=== PATIENT | female | born 1995 | race Caucasian/White ===

== ENCOUNTER 2017-01-12 04:25 | Emergency (ER) | payer OTHER ==
[~2017-01-12] VITALS: Ht 154.9 cm; Wt 79.6 kg
[2017-01-12 04:29] VITALS: Ht 154.9 cm; Wt 79.6 kg
[2017-01-12] MEDS ORDERED: ACETAMINOPHEN 325 MG TAB PO STA (05:12)
[2017-01-12] MEDS ORDERED: SODIUM CHLORIDE 0.9% 1L BAG IV* STA (05:12)
[2017-01-12 05:54] LABS: BASOPHILS % 0.1 % (0.0-2.0); EOSINOPHILS % 0.1 % (0.0-7.0); HEMOGLOBIN 13.5 g/dl (12.0-16.0); LYMPHOCYTES # 0.9 10^3/ul (0.8-2.9); LYMPHOCYTES % 8.6 % (15.0-51.0); MEAN CORPUSCULAR HEMOGLOBIN 27.6 pg (29.0-33.0); MEAN CORPUSCULAR HGB CONC 33.7 g/dl (32.0-37.0); MEAN CORPUSCULAR VOLUME 82.1 fl (82.0-101.0); MEAN PLATELET VOLUME 8.3 fl (7.4-10.4); MONOCYTES % 9.6 % (0.0-11.0); NEUTROPHIL # 8.8 10^3/ul (1.6-7.5); NEUTROPHILS % 81.6 % (39.0-77.0); PLATELET COUNT 308 10^3/UL (140-440); RED BLOOD COUNT 4.88 10^6/ul (4.20-5.40); UNCORRECTED WBC 10.7 10^3/ul (4.8-10.8); WHITE BLOOD COUNT 10.7 10^3/ul (4.8-10.8)
--- NOTE | 2017-01-12 05:54 | RADRPT ---
PROCEDURE: XR Chest. CLINICAL INDICATION: Possible sepsis TECHNIQUE: A single AP view of the chest was obtained. COMPARISON: None. FINDINGS: Lung volumes are low. No focal airspace opacification, pleural effusion or pneumothorax is seen. T he cardiomediastinal silhouette is within normal limits for size. The osseous structures are unrema rkable. IMPRESSION: Low lung volumes. No radiographic evidence of acute cardiopulmonary disease. RPTAT: HH .Tami Toney MD, MD Date Time Electronically viewed and signed by .Tami Toney MD, MD on 01/12/2017 05:53 .G/
[2017-01-12 06:01] LABS: INR 1.05; PARTIAL THROMBOPLASTIN TIME 23.9 Sec (25.0-35.0); PROTIME 13.7 Sec (12.2-14.2); PT RATIO 1.1
[2017-01-12 06:05] LABS: CONDITION 1
[2017-01-12 06:10] LABS: ALBUMIN 4.2 g/dl (3.3-4.9); CHLORIDE 105 mmol/L (97-110)
[2017-01-12 06:11] LABS: POTASSIUM 4.2 mmol/L (3.5-5.1); SODIUM 147 mmol/L (135-144)
[2017-01-12 06:13] LABS: ALBUMIN/GLOBULIN RATIO 1.44; ALKALINE PHOSPHATASE 93 IU/L (42-121); ANION GAP 20 (8-16); ASPARTATE AMINO TRANSFERASE 24 IU/L (15-46); BILIRUBIN,INDIRECT 0.1 mg/dl (0-1.1); BILIRUBIN,TOTAL 0.1 mg/dl (0.2-1.3); BLOOD UREA NITROGEN 15 mg/dl (7-20); CARBON DIOXIDE 26 mmol/L (21-31); CREATININE 0.81 mg/dl (0.44-1.00); TOTAL PROTEIN 7.1 g/dl (6.1-8.1)
[2017-01-12 06:14] LABS: ALANINE AMINOTRANSFERASE 44 IU/L (13-69); CALCIUM 9.6 mg/dl (8.4-10.2); GLUCOSE 112 mg/dl (70-220)
[2017-01-12] MEDS ORDERED: KETOROLAC 15 MG INJ IV STA (06:19)
[2017-01-12 06:25] LABS: TROPONIN-I < 0.012 ng/ml (0.00-0.12)
[2017-01-12] MEDS ORDERED: DEXAMETHASONE 10 MG/ML 1 ML INJ IV ONE (06:30)
[2017-01-12] MEDS ORDERED: AMPICILLIN/SULB 3 GM/NS (PMX) 100 ML IVPB ONE (06:30)
[2017-01-12] MEDS ORDERED: IBUP800T25 PO (06:33)
[2017-01-12] MEDS ORDERED: AMOX1TAB10 PO (06:33)
[2017-01-12] MEDS ORDERED: ONDA4TAB14 PO (06:33)
[2017-01-12 06:34] LABS: ADD UMIC YES; URINE BILIRUBIN (Dip) NEGATIVE (NEGATIVE); URINE BLOOD (Dip) 3+ (NEGATIVE); URINE COLOR LT. YELLOW (YELLOW); URINE GLUCOSE (Dip) NEGATIVE (NEGATIVE); URINE KETONES (Dip) TRACE (NEGATIVE); URINE LEUKOCYTE ESTERASE (Dip) NEGATIVE (NEGATIVE); URINE NITRITE (Dip) NEGATIVE (NEGATIVE); URINE TOTAL PROTEIN (Dip) NEGATIVE (NEGATIVE); URINE UROBILINOGEN (Dip) 0.2 E.U./dL (0.1-1.0)
[2017-01-12 06:47] LABS: BACTERIA,URINE MODERATE
--- NOTE | 2017-01-12 07:32 | ERD ---
ER Documentation Chief Complaint Date/Time DATE: 01/12/17 TIME: 07:29 Chief Complaint states atb for sore throat not working, still c/o sore throatvomiting/fever HPI Very pleasant 21-year-old female presents with sore throat and nausea and vomiting. She describes several days of symptoms that include moderate sore throat with associated nonbloody nonbilious emesis. She also has a fever. She denies any significant muffled voice, no difficulty swallowing. She went to [facility] approximately 1-1/2 days ago and received penicillin. She describes persistent symptoms despite this treatment. ROS All systems reviewed and are negative except as per history of present illness. Medications Home Meds Active Scripts Ondansetron (Ondansetron Odt) 4 Mg Tab.rapdis, 4 MG PO Q6H Y for NAUSEA AND/OR VOMITING, #30 TAB Prov:RUSLAN OLIVARES MD 01/12/17 Amoxicillin/Potassium Clav (Amox-Clav 875-125 mg Tablet) 875-125 mg Tab, 1 TAB PO BID for 7 Days, #14 TAB Prov:RUSLAN OLIVARES MD 01/12/17 Ibuprofen* (Motrin*) 800 Mg Tab, 800 MG PO Q6H Y for PAIN AND OR ELEVATED TEMP, #30 TAB Prov:RUSLAN OLIVARES MD 01/12/17 Allergies Allergies: Coded Allergies: No Known Drug Allergies (Verified Allergy, Unknown, 01/12/17) PMhx/Soc Medical and Surgical Hx: pt denies Medical Hx History of Surgery: Yes ("appendectomy at age 7") Anesthesia Reaction: No Hx Neurological Disorder: No Hx Respiratory Disorders: No Hx Cardiac Disorders: No Hx Psychiatric Problems: No Hx Miscellaneous Medical Probl: Yes ("swollen lymph node" 01/10/17) Hx Alcohol Use: No Hx Substance Use: No Hx Tobacco Use: No Smoking Status: Never smoker FmHx Family History: No diabetes Physical Exam Vitals Vital Signs Date Time Temp Pulse Resp B/P Pulse Ox O2 Delivery O2 Flow Rate FiO2 01/12/17 07:12 99.3 101 18 125/75 100 Room Air 01/12/17 06:00 100.3 108 16 126/70 100 Room Air 01/12/17 04:29 101.3 130 22 122/76 98 Physical Exam General: Well developed, well nourished, no acute distress Head: Normocephalic, atraumatic. Eyes: Pupils equally reactive, EOM intact ENT: Moist mucous membranes, posterior pharynx with tonsillar swelling and exudates bilaterally, 2+ tonsils, uvula midline, tolerating secretions, soft submental space Neck: Supple, anterior cervical chain bilateral lymphadenopathy Respiratory: Lungs clear bilaterally, no distress Cardiovascular: RRR, no murmurs, rubs, or gallops Abdominal: Soft, non-tender, non-distended, no peritoneal signs : Deferred MSK: No edema, no unilateral swelling, 5/5 strength Neurologic: Alert and oriented, moving all extremities, normal speech, no focal weakness, no cerebellar signs, no meningismus Skin: No rash Psych: Normal mood Result Diagram: 01/12/1751401/12/1715 Results 24 hrs Laboratory Tests Test 01/12/17 05:15 01/12/17 05:40 Activated Partial Thromboplast Time 23.9Sec Alanine Aminotransferase (ALT/SGPT) 44IU/L Albumin 4.2g/dl Albumin/Globulin Ratio 1.44 Alkaline Phosphatase 93IU/L Anion Gap 20 Aspartate Amino Transf (AST/SGOT) 24IU/L Basophils # 0.010^3/ul Basophils % 0.1% Blood Morphology Comment Blood Urea Nitrogen 15mg/dl Calcium Level 9.6mg/dl Carbon Dioxide Level 26mmol/L Chloride Level 105mmol/L Creatinine 0.81mg/dl Direct Bilirubin 0.00mg/dl Eosinophils # 0.010^3/ul Eosinophils % 0.1% Globulin 2.90g/dl Glucose Level 112mg/dl Hematocrit 40.0% Hemoglobin 13.5g/dl INR International Normalized Ratio 1.05 Indirect Bilirubin 0.1mg/dl Lactic Acid Level 1.1mmol/L Lymphocytes # 0.910^3/ul Lymphocytes % 8.6% Mean Corpuscular Hemoglobin 27.6pg Mean Corpuscular Hemoglobin Concent 33.7g/dl Mean Corpuscular Volume 82.1fl Mean Platelet Volume 8.3fl Monocytes # 1.010^3/ul Monocytes % 9.6% Neutrophils # 8.810^3/ul Neutrophils % 81.6% Nucleated Red Blood Cells # 0.010^3/ul Nucleated Red Blood Cells % 0.0/100WBC Platelet Count 78627^3/UL Potassium Level 4.2mmol/L Prothrombin Time 13.7Sec Prothrombin Time Ratio 1.1 Red Blood Count 4.8810^6/ul Red Cell Distribution Width 13.0% Sodium Level 147mmol/L Total Bilirubin 0.1mg/dl Total Protein 7.1g/dl Troponin I < 0.012ng/ml White Blood Count 10.710^3/ul Urine Bacteria MODERATE Urine Bilirubin NEGATIVE Urine Clarity SLIGHTLY CLOUDY Urine Color LT. YELLOW Urine Epithelial Cells MANY Urine Glucose NEGATIVE% Urine Hemoglobin 3+ Urine Ketones TRACE Urine Leukocyte Esterase NEGATIVE Urine Microscopic RBC 2-5/HPF Urine Microscopic WBC 2-5/HPF Urine Nitrite NEGATIVE Urine Specific [place] 1.015 Urine Total Protein NEGATIVE Urine Urobilinogen 0.2 E.U./dL Urine pH 5.5 Current Medications Medications (Trade) Dose Ordered Sig/Maria Teresa Route PRN Reason Start Time Stop Time Status Last Admin Dose Admin Sodium Chloride (NS) 2,470 ml BOLUS OVER 2 HOURS STAT IV* 01/12/17 05:12 01/12/17 05:14 DC 01/12/17 05:38 Acetaminophen (Tylenol Tab) 650 mg ONCE STAT PO 01/12/17 05:12 01/12/17 05:14 DC 01/12/17 05:38 Dexamethasone 10 mg 10 mg ONCE ONCE IV 01/12/17 06:30 01/12/17 06:31 DC 01/12/17 07:01 Ampicillin Sodium/ Sulbactam Sodium (Unasyn 3gm/NS (Pmx)) 100 ml @ 100 mls/hr ONCE ONCE IVPB 01/12/17 06:30 01/12/17 07:29 01/12/17 07:14 Ketorolac Tromethamine (Toradol) 15 mg ONCE STAT IV 01/12/17 06:19 01/12/17 06:21 DC 01/12/17 06:52 Procedures/MDM EKG, MONITORS, & DIAGNOSTIC IMAGING: EKG: I reviewed and interpreted a 12-lead EKG. Rhythm: Normal sinus rhythm Ectopy: None Intervals: No abnormalities ST segments: No elevations or depressions T waves: No contiguous inversions Chest x-ray: I reviewed and interpreted a 1 view of the chest Mediastinum: No enlargement Cardiac silhouette: No cardiomegaly Airspace: Clear lung caban bilaterally without evidence of pneumothorax Bones: No evidence of fracture LAB INTERPRETATION: No significant leukocytosis, normal lactic acid MEDICAL DECISION MAKING: The patient's workup was initiated by the overnight doctor. The patient has no leukocytosis, normal lactic acid and normal chest x-ray. She is clear signs and symptoms consistent with streptococcal pharyngitis. No evidence of peritonsillar abscess, retropharyngeal abscess. She is tolerating secretions and has a supple neck. I am not necessarily convinced this is antibiotic failure versus normal progression of the disease process. I do believe the patient would benefit from broadening antibiotics as well as steroids. The patient will be given Augmentin as an outpatient. A dose of Unasyn provided here as well as 10 mg of Decadron. The patient was given IV fluids, antipyretics and pain control medications. ER COURSE: The patient had interventions as documented above. The patient has improved vital signs, subjective improvement and continues to be very well-appearing. At this time no indication for inpatient hospitalization. She has no discernible abscess that would require I&D. The patient is safe for outpatient management. I kept the patient and/or family informed of laboratory and diagnostic imaging results throughout the emergency room course. DISPOSITION PLAN: We discussed follow up with the patient's primary care doctor within 24 to 48 hours as needed. We also discussed return to the emergency room for worsening symptoms or worsening condition. Discharge Medications: Motrin, Zofran, Augmentin Departure Diagnosis: Primary Impression: Streptococcal pharyngitis Condition: Stable Patient Instructions: Strep Throat Referrals: [facility] YOU HAVE RECEIVED A MEDICAL SCREENING EXAM AND THE RESULTS INDICATE THAT YOU DO NOT HAVE A CONDITION THAT REQUIRES URGENT TREATMENT IN THE EMERGENCY DEPARTMENT. FURTHER EVALUATION AND TREATMENT OF YOUR CONDITION CAN WAIT UNTIL YOU ARE SEEN IN YOUR DOCTORS OFFICE WITHIN THE NEXT 1-2 DAYS. IT IS YOUR RESPONSIBILITY TO MAKE AN APPOINTMENT FOR [facility]. IF YOU HAVE A PRIMARY DOCTOR --you should call your primary doctor and schedule an appointment IF YOU DO NOT HAVE A PRIMARY DOCTOR YOU CAN CALL OUR PHYSICIAN REFERRAL HOTLINE AT IF YOU CAN NOT AFFORD TO SEE A PHYSICIAN YOU CAN CHOSE FROM THE FOLLOWING [facility] [address] [facility]. [place] [facility] [address] [facility] [facility] [address] [facility]. [facility] [address] [facility]. [facility] [address] [facility]. [facility]. [address] [facility]. [facility] YOU HAVE RECEIVED A MEDICAL SCREENING EXAM AND THE RESULTS INDICATE THAT YOU DO NOT HAVE A CONDITION THAT REQUIRES URGENT TREATMENT IN THE EMERGENCY DEPARTMENT. FURTHER EVALUATION AND TREATMENT OF YOUR CONDITION CAN WAIT UNTIL YOU ARE SEEN IN YOUR DOCTORS OFFICE WITHIN THE NEXT 1-2 DAYS. IT IS YOUR RESPONSIBILITY TO MAKE AN APPOINTMENT FOR [facility]. IF YOU HAVE A PRIMARY DOCTOR --you should call your primary doctor and schedule and appointment IF YOU DO NOT HAVE A PRIMARY DOCTOR YOU CAN CALL OUR PHYSICIAN REFERRAL HOTLINE AT . IF YOU CAN NOT AFFORD TO SEE A PHYSICIAN YOU CAN CHOSE FROM THE FOLLOWING [facility] INSTITUTIONS: [facility] [address] [place] [address] [facility] [address] [place] [address] [facility] [address] [place] [address] Additional Instructions: Call your primary care doctor TOMORROW for an appointment during the next 1 WEEK.Tell the statistical secretary that you were referred from this facility.See the doctor sooner or return here if your condition worsens before your appointment time. RUSLAN OLIVARES MD Jan 12, 2017 07:32
[2017-01-12 08:48] VITALS: BP 135/79; PULSE 69; RESP 19; TEMP 98.7
== END 2017-01-12 08:49 | disposition home or self-care (01) ==
LOC: E/R 04:25
DX: J02.0 Streptococcal pharyngitis (principal); R40.2142 Coma scale, eyes open, spontaneous, at arrival to emergency department; R40.2252 Coma scale, best verbal response, oriented, at arrival to emergency department; R40.2362 Coma scale, best motor response, obeys commands, at arrival to emergency department; R10.9 Unspecified abdominal pain
CPT/HCPCS: 36415; 71010; 80053; 81001; 83605; 84484; 85025; 85610; 85730; 87040; 87086; 93005; 96374; 96375; J0295; J1100; J1885; J7030; Z7502; Z7610; 81003

== ENCOUNTER 2017-01-14 07:47 | Emergency (ER) | payer OTHER ==
[~2017-01-14] VITALS: Wt 67.0 kg
[~2017-01-14 07:47] MED LIST: AMOX1TAB10 PO; IBUP800T25 PO; ONDA4TAB14 PO
[2017-01-14] MEDS ORDERED: KETOROLAC 30 MG INJ IV STA (08:10)
[2017-01-14] MEDS ORDERED: ONDANSETRON 4 MG INJ IV STA ×2 (08:10→11:18)
--- NOTE | 2017-01-14 08:10 | ERD ---
ER Documentation Chief Complaint Date/Time DATE: 01/14/17 TIME: 08:00 Chief Complaint sore throat fever and vomiting for the past few days. not better with abx HPI 21 y/o female presents to ED for sore throat. Stated she was here in the emergency department 2 days ago for the same symptoms, blood works was done chest x-ray was done and was discharged and prescribed with Augmentin and Motrin. Also reports that she was also seen at [facility] recently for the same symptoms. Pain was described as achy non-radiating with a pain rate of 10/10. Also reports the pain is worse when swallowing. Nauseated but no vomiting. Exposed to step father who has symptoms of cough and colds. Denies headache, loss of consciousness, dizziness, blurry vision, changes in vision, photophobia, facial pain, ear pain, neck pain, shoulder pain, chest pain , cough, hemoptysis, abdominal pain, back pain, loss of appetite, vomiting, hematochezia, diarrhea, constipation, urinary symptoms, , the possibility of being , bladder and bowel incontinences, extremity weakness, extremity tenderness, numbness or tingling sensation, difficulty walking, recent travel. Allergy: NKA PMH: Denies. Family medical history: Denies. AO LMP:12/11/2016 Medications: Motrin. Augmentin. Surgery: Appendectomy. Primary Social History: Works as a medical technologist microbiology. Denies smoking, use of alcohol, use of illegal drugs. ROS All systems reviewed and are negative except as per history of present illness. Medications Home Meds Active Scripts Ondansetron (Ondansetron Odt) 4 Mg Tab.rapdis, 4 MG PO Q6H Y for NAUSEA AND/OR VOMITING, #30 TAB Prov:RUSLAN OLIVARES MD 01/12/17 Amoxicillin/Potassium Clav (Amox-Clav 875-125 mg Tablet) 875-125 mg Tab, 1 TAB PO BID for 7 Days, #14 TAB Prov:RUSLAN OLIVARES MD 01/12/17 Ibuprofen* (Motrin*) 800 Mg Tab, 800 MG PO Q6H Y for PAIN AND OR ELEVATED TEMP, #30 TAB Prov:RUSLAN OLIVARES MD 01/12/17 Allergies Allergies: Coded Allergies: No Known Drug Allergies (Verified Allergy, Unknown, 01/12/17) PMhx/Soc History of Surgery: Yes ("appendectomy at age 7") Anesthesia Reaction: No Hx Neurological Disorder: No Hx Respiratory Disorders: No Hx Cardiac Disorders: No Hx Psychiatric Problems: No Hx Miscellaneous Medical Probl: Yes ("swollen lymph node" 01/10/17) Hx Alcohol Use: No Hx Substance Use: No Hx Tobacco Use: No Smoking Status: Never smoker Physical Exam Vitals Vital Signs Date Time Temp Pulse Resp B/P Pulse Ox O2 Delivery O2 Flow Rate FiO2 01/14/17 07:50 99.8 99 20 114/69 97 Physical Exam CONSTITUTIONAL: Well-appearing; well-nourished; in no apparent distress. HEAD: Normocephalic; atraumatic. EYES: Conjunctiva clear, sclera non-icteric, EOM intact. PERRL Ears: Hearing intact. EACs clear, TMs non-bulging, non-inflamed, translucent & mobile, ossicles normal appearance, No obstructions, no erythema, no discharges Nose: No obstructions. No polyps. No external lesions. Mucosa non-inflamed. No external lesions, septum and turbinates normal. No rhinorrhea. No discharges. Frontal sinus is non-tender to palpation. Maxillary sinus is non-tender to palpation. MOUTH: Moist mucous membranes, no lesion, no obstructions, no vesicles, no thrush, patent airway Throat: Uvula in midline. Right tonsil is +2 erythema and exudate. Left tonsil is +2 erythema and exudate. Tolerating secretions well. Good gag reflex. Patent airway. Neck: Supple, without lesions, bruits, or adenopathy. No mass. Thyroid non- enlarged and non-tender to palpation. CHEST: Symmetrical chest. Respirations even and not labored. No retractions noted. CARDIOVASCULAR: Normal S1, S2. RRR. No murmurs, gallops. RESPIRATORY: Normal chest excursion with respiration; breath sounds clear and equal bilaterally; no wheezes, rhonchi, or rales. Breathing even and unlabored. Speaking in clear, full, and complete sentences w/ ease. ABDOMEN: Normal bowel sounds normal. Soft, round, non-distended, non-guarding, no tenderness, no rebound, no organomegaly, no masses, no pulsating abdominal mass. No hernia. No peritoneal signs. : No CVA tenderness. BACK: Symmetrical shoulder. Spine is midline without deformity, tenderness. No evidence of trauma or deformity. PELVIS: Stable pelvis. No evidence of trauma or deformity. MUSCULOSKELETAL: Normal gait and station. No misalignment, asymmetry, crepitation, defects, tenderness, masses, effusions, decreased range of motion, instability, atrophy or abnormal strength or tone in the head, neck, spine, ribs , pelvis or extremities. No calf tenderness. NEUROVASCULAR: Distal pulses are present. Pedal pulse are present, equal, and normal. Capillary refills are < 2 seconds. NEUROLOGIC: Alert and oriented x4. Speaks full and clear sentences. Cranial Nerves II-XII normal. Sensation to pain, touch, and proprioception normal. Grossly unremarkable. No neurologic deficits. Romberg test is negative. PSYCHOLOGICAL: The patients mood and manner are appropriate. No hallucinations , delusions. Not SI. Not HI. Has the capacity to decide for self SKIN: Normal for age and ethnicity; warm; dry; good turgor; no apparent lesions or exudates. No rashes, hives, discoloration. Intact. Result Diagram: 01/14/17 0831 01/14/17 0831 Results 24 hrs Laboratory Tests Test 01/14/17 08:31 Anion Gap 17 Basophils # 0.010^3/ul Basophils % 0.3% Blood Urea Nitrogen 15mg/dl Calcium Level 9.2mg/dl Carbon Dioxide Level 31mmol/L Chloride Level 103mmol/L Creatinine 0.67mg/dl Eosinophils # 0.010^3/ul Eosinophils % 0.1% Glucose Level 111mg/dl Hematocrit 41.7% Hemoglobin 13.5g/dl Lymphocytes # 1.910^3/ul Lymphocytes % 16.6% Mean Corpuscular Hemoglobin 26.8pg Mean Corpuscular Hemoglobin Concent 32.4g/dl Mean Corpuscular Volume 82.7fl Mean Platelet Volume 9.1fl Monocytes # 1.110^3/ul Monocytes % 10.0% Monoscreen Negative Neutrophils # 8.110^3/ul Neutrophils % 72.5% Nucleated Red Blood Cells # 0.010^3/ul Nucleated Red Blood Cells % 0.0/100WBC Platelet Count 56684^3/UL Potassium Level 3.5mmol/L Red Blood Count 5.0410^6/ul Red Cell Distribution Width 12.6% Sodium Level 147mmol/L White Blood Count 11.210^3/ul Current Medications Medications (Trade) Dose Ordered Sig/Maria Teresa Route PRN Reason Start Time Stop Time Status Last Admin Dose Admin Dexamethasone (Decadron) 10 mg ONCE ONCE IV 01/14/17 08:30 01/14/17 08:31 DC 01/14/17 08:34 Ketorolac Tromethamine (Toradol) 30 mg ONCE STAT IV 01/14/17 08:10 01/14/17 08:17 DC 01/14/17 08:34 Ondansetron HCl 4 mg 4 mg ONCE STAT IV 01/14/17 08:10 01/14/17 08:17 DC 01/14/17 08:34 Sodium Chloride 1,000 ml @ 0 mls/hr Q0M IV 01/14/17 08:30 01/14/17 08:37 DC Sodium Chloride (NS) 500 ml @ 500 mls/hr Q1H ONCE IV 01/14/17 09:00 01/14/17 09:59 DC 01/14/17 08:41 IV Flush 10 ml 10 ml STK-MED ONCE .ROUTE 01/14/17 09:07 01/14/17 09:08 DC 01/14/17 09:27 Sodium Chloride (NS) 100 ml @ ud STK-MED ONCE .ROUTE 01/14/17 09:07 01/14/17 09:08 DC 01/14/17 09:27 Iohexol (Omnipaque 300mg/ ml) 150 ml STK-MED ONCE .ROUTE 01/14/17 09:07 01/14/17 09:08 DC 01/14/17 09:27 Procedures/MDM Examination: Please see physical examination. Disease process, medical treatment was explained to the patient and family member. They verbalized understanding and agreed with the diagnostic tests, medical treatment, and follow-up care. Case and medical management was discussed with supervising emergency room physician, Dr. Arturo eTllo who agreed with my present diagnostic test, treatment and aftercare. Radiology: CT neck soft tissue with IV contrast. Impression: Bulky lymphadenopathy large left retropharyngeal lymph nodes as described in detail above. Although these findings may be reactive in nature, lymphoproliferative distortion excluded. Enlarged palatine and lingual tonsils without evidence of tonsillar peritonsillar abscess. Infectious or inflammatory versus infiltrative process. No discrete soft tissue mass or abnormal fluid collection in the neck. No cross vascular abnormality. Blood works: Reviewed. POC urine : Negative. Treatment: IV insertion. Normal saline 500 cc IV bolus. Decadron 10 mg IV. Zofran 4 mg IV. Morphine 4 mg IV. Zofran 4 mg IV. Re-evaluation: Relieve of throat pain. Able to swallow 30 cc of water. Tolerating secretions. Patent airway. Speaks full and clear sentences. Good and full range of motion of neck without pain difficulty. No pain on eye movement. Extraocular movement of the eye is within normal limits. Consultation: None. Differential diagnosis: Retropharyngeal abscess versus peritonsillar abscess versus strep throat versus throat pain Medical decision makin21 y/o female presents to ED for sore throat. Stated she was here in the emergency department 2 days ago for the same symptoms, blood works was done chest x-ray was done and was discharged and prescribed with Augmentin and Motrin. Also reports that she was also seen at [facility] recently for the same symptoms. Pain was described as achy non-radiating with a pain rate of 10/10. Also reports the pain is worse when swallowing. Nauseated but no vomiting. Exposed to step father who has symptoms of cough and colds. Patient's complaint, patient's history about her complaint, previous treatments , my physical findings, diagnostic test results are consistent with my final diagnosis of left retropharyngeal lymph nodes. After the medications that was given here in the emergency room, patient relieve of throat pain. Able to swallow 30 cc of water. Tolerating secretions. Patent airway. Speaks full and clear sentences. Good and full range of motion of neck without pain difficulty. No pain on eye movement. Extraocular movement of the eye is within normal limits. Instructed to follow-up with PCP in the next 24-48 hours. Also instructed to follow-up with ENT in the next 24-48 hours. Patient and her mother agreed with the plan of care as well as follow-up care. Verbalized understanding. Medications prescribed are the following: Continue her Augmentin and Motrin at home. Patient and family member are made aware of the side effects and adverse reactions of the medications prescribed. Instructed on when to seek emergent and medical attention in case allergic/anaphylactic reactions or severe side effects and or adverse reactions to medications. Patient and family member verbalized understanding. Patient instructed Instructed to follow-up with his PCP in 24-48 hours. Follow-up with ENT in the next 24-48 hours. Instructed to Call 911 for chest pain, shortness of breath. Advised to come back here in ED as soon as possible for severity of symptoms which includes but not limited to: any new symptoms; shortness of breath/difficulty of breathing; cardiovascular changes; severe gastrointestinal symptoms; signs and symptoms of bleeding and or infection; signs of compartment syndrome/neurovascular changes; neurological changes/deficits. Patient and family member verbalized understanding. Upon discharge, patient is alert and oriented x 4, speaks full and clear sentences, denies pain, has no neurological deficits, has no neurovascular deficits, difficulty of breathing. Breathing even and unlabored. Lung sounds are clear to auscultation. Not in distress. Appears comfortable. Ambulatory with steady gait. Appears satisfied with care provided here in ED. Departure Diagnosis: Primary Impression: Acute pharyngitis Pharyngitis/tonsillitis etiology: streptococcus Qualified Code: J02.0 - Acute streptococcal pharyngitis Condition: Good Additional Instructions: Instructed to follow-up with his PCP in 24-48 hours. Follow-up with ENT in the next 24-48 hours. Instructed to Call 911 for chest pain, shortness of breath. Advised to come back here in ED as soon as possible for severity of symptoms which includes but not limited to: any new symptoms; shortness of breath/difficulty of breathing; cardiovascular changes; severe gastrointestinal symptoms; signs and symptoms of bleeding and or infection; signs of compartment syndrome/neurovascular changes; neurological changes/deficits. Patient and family member verbalized understanding. CAMPBELL DALE Jan 14, 2017 08:10
[2017-01-14] MEDS ORDERED: SOD CHLORIDE 0.9% 1,000 ML IV SCH (08:30)
[2017-01-14] MEDS ORDERED: DEXAMETHASONE 10 MG/ML 1 ML INJ IV ONE (08:30)
[2017-01-14 08:36] LABS: ADD SCAN DIFF NO
[2017-01-14 08:40] LABS: BASOPHILS % 0.3 % (0.0-2.0); EOSINOPHILS % 0.1 % (0.0-7.0); HEMATOCRIT 41.7 % (37.0-47.0); HEMOGLOBIN 13.5 g/dl (12.0-16.0); LYMPHOCYTES # 1.9 10^3/ul (0.8-2.9); LYMPHOCYTES % 16.6 % (15.0-51.0); MEAN CORPUSCULAR HEMOGLOBIN 26.8 pg (29.0-33.0); MEAN CORPUSCULAR HGB CONC 32.4 g/dl (32.0-37.0); MEAN CORPUSCULAR VOLUME 82.7 fl (82.0-101.0); MEAN PLATELET VOLUME 9.1 fl (7.4-10.4); MONOCYTE # 1.1 10^3/ul (0.3-0.9); NEUTROPHIL # 8.1 10^3/ul (1.6-7.5); NEUTROPHILS % 72.5 % (39.0-77.0); PLATELET COUNT 303 10^3/UL (140-415); RED BLOOD COUNT 5.04 10^6/ul (4.20-5.40); RED CELL DISTRIBUTION WIDTH 12.6 % (11.5-14.5); WHITE BLOOD COUNT 11.2 10^3/ul (4.8-10.8)
[2017-01-14 08:46] LABS: POTASSIUM 3.5 mmol/L (3.5-5.1)
[2017-01-14 08:49] LABS: CALCIUM 9.2 mg/dl (8.4-10.2); CREATININE 0.67 mg/dl (0.44-1.00)
[2017-01-14] MEDS ORDERED: SOD CHLORIDE 0.9% 500 ML IV ONE (09:00)
[2017-01-14] MEDS ORDERED: IOHEXOL 300MG/ML 150 ML BTL ONE (09:07)
[2017-01-14] MEDS ORDERED: SOD CHLORIDE 0.9% 100 ML ONE (09:07)
--- NOTE | 2017-01-14 10:50 | RADRPT ---
PROCEDURE: CT soft tissue neck with contrast. CLINICAL INDICATION: Circular. Neck pain. TECHNIQUE: The study was performed utilizing a multidetector CT scanner. Direct thin section helic ally acquired axial sections were obtained through the neck without contrast. Coronal and sagittal reformations were obtained. 80 ml Omnipaque 300 was administered without complication. The total CT DIvol is 11.38 mGy and the DLP is calorie 99.51 mGy-cm. One or more of the following dose reduction techniques were utilized: Automated exposure control, adjustment of the mA and/or kV according to p atient size, use of iterative reconstruction technique. COMPARISON: No prior studies are available for comparison. FINDINGS: The visualized intracranial contents, paranasal sinuses, and orbits are unremarkable. Diffuse enlargement of the palatine and lingual tonsils without discrete evidence of abnormal fluid collection to suggest jones for or peritonsillar abscess. Enlarged left retropharyngeal lymph nodes wi th the largest measuring 12 mm in short axis dimension deforming the posterior aspect of the left or opharynx. Markedly enlarged jugulodigastric lymph nodes bilaterally measuring 18 millimeters in jose l rt axis dimension on the right and 16 mm in short axis dimension on the left. Multiple borderline e nlarged bilateral internal jugular chain level IIB Nonenlarged level III,IV, and level V cervical lymph nodes in all these findings may be reactive in nature. Clinical correlation for lymphoma proliferative disorder is recommended. The nasopharynx, tonsillar pillars, base of tongue, oropharynx, parapharyngeal spaces, hypopharynx, and larynx are all normal in appearance. Normal appearance of the false and true vocal cords. The thyroid gland is normal in size with no focal mass lesions seen. submandibular and parotid glands are unremarkable and normal in appearance. No pathologically enla rged lymph nodes are detected. No gross vascular abnormality. No osteolytic or blastic lesion is florina dent. The visualized lung apices are clear. IMPRESSION: 1. Bulky lymphadenopathy who with large left retropharyngeal lymph nodes as described in detail abov e. Although these findings may be reactive in nature, lymphoproliferative distortion excluded. 2. Enlarged palatine and lingual tonsils without evidence of tonsillar or peritonsillar abscess. Infectious or inflammatory versus infiltrative process. 3. No discrete soft tissue mass or abnormal fluid collection in the neck. No gross vascular abnorm ality. RPTAT:AAJJ Maria Teresa Alonso Physician Date Time Electronically viewed and signed by Maria Teresa Alonso Physician on 01/14/2017 10:49 NARCISO/
[2017-01-14] MEDS ORDERED: morphine 4 MG/ML VIAL IV STA (11:18)
[2017-01-14] MEDS ORDERED: LIDOCAINE 2% VISC 15 ML CUP PO ONE (12:00)
[2017-01-14 12:06] VITALS: BP 143/85; PULSE 82; RESP 20; TEMP 98.3
== END 2017-01-14 12:08 | disposition home or self-care (01) ==
LOC: FTE 07:47
DX: J02.0 Streptococcal pharyngitis (principal); R11.10 Vomiting, unspecified
CPT/HCPCS: 70491; 80048; 85025; 86308; 96374; 96375; 96376; J1100; J1885; J2270; J2405; J7040; Q9967; Z7502; Z7610